=== PATIENT | female | born 1985 | race Caucasian/White ===

== ENCOUNTER 2025-07-08 19:04 | Emergency (ER) | payer MEDICAID ==
[~2025-07-08 19:04] MED LIST: OMEP20CA14 PO; ONDA4TAB51 PO; PREN-88 PO
[2025-07-08 19:09] VITALS: PULSE 100; RESP 16; O2SAT 95
== END 2025-07-08 21:27 | disposition left against medical advice (07) ==
LOC: ER 19:04
DX: M79.642 Pain in left hand (principal)
CPT/HCPCS: 99281